=== PATIENT | male | born 1985 | race Caucasian/White ===

== ENCOUNTER 2017-11-05 06:31 | Day surgery (SDC) | payer BC ==
[~2017-11-05 06:31] MED LIST: Lactated Ringers 1,000 ML IV SCH; Lidocaine 1%/Sod Bicarbonate in NS 8.4% 1 ML Syringe IDERM PRN; Sodium Chloride 0.9% 10 ML Syringe FLUSH PRN
[2017-11-05] MEDS ORDERED: Propofol 200 MG/20 ML SDV ONE (07:06)
[2017-11-05] MEDS ORDERED: fentaNYL 100 MCG/2 ML SDV ONE (07:06)
[2017-11-05] MEDS ORDERED: Lidocaine 1% 4 ML ONE (07:07)
--- NOTE | 2017-11-05 07:18 | PCM.PREANE ---
Preanesthetic Assessment - Procedure Proposed Procedure: Diagnostic EGD - Anesthesia/Transfusion/Family Hx Anesthesia History: Prior Anesthesia Without Reaction Family History of Anesthesia Reaction: No Transfusion History: No Prior Transfusion(s) - Review of Systems General: No Symptoms Pulmonary: No Symptoms (Asthma, ADAMA with no CPAP), Other Cardiovascular: Other (HTN) Gastrointestinal: Other (GERD) Neurological: No Symptoms Other: Reports: Thyroid Problems (hypothyroid) - Physical Assessment NPO Status Date: 11/04/17 NPO Status Time: 20:00 Pulse: 82 O2 Sat by Pulse Oximetry: 94 Respiratory Rate: 18 Blood Pressure: 107/87 Temperature: 36.1 C Height: 1.8 m Weight: 158 kg ASA Class: 2 Mental Status: Alert & Oriented x3 Airway Class: Mallampati = 2 Dentition: Reports: Normal Dentition Thyro-Mental Finger Breadths: 3 Mouth Opening Finger Breadths: 3 ROM/Head Extension: Full Lungs: Clear to Auscultation, Normal Respiratory Effort Cardiovascular: Regular Rate, Regular Rhythm - Allergies Allergies/Adverse Reactions: Allergies Allergy/AdvReac Type Severity Reaction Status Date / Time No Known Allergies Allergy Verified 12/30/15 02:51 - Blood Blood Available: No Product(s) Available: None - Anesthesia Plan Pre-Op Medication Ordered: None - Acknowledgements Anesthesia Type Planned: MAC Pt an Appropriate Candidate for the Planned Anesthesia: Yes Alternatives and Risks of Anesthesia Discussed w Pt/Guardian: Yes Pt/Guardian Understands and Agrees with Anesthesia Plan: Yes PreAnesthesia Questionnaire HEENT History: Reports: Allergic Rhinitis Cardiovascular History: Reports: Hypertension Respiratory History: Reports: Asthma Gastrointestinal History: Reports: GERD, Hiatal Hernia Genitourinary History: Reports: Renal Calculus Other Genitourinary History: kidney disease - Past Surgical History HEENT Surgical History: Reports: Myringotomy w Tube(s), Tonsillectomy - SUBSTANCE USE Smoking Status *Q: Never Smoker Second Hand Smoke Exposure: No Recreational Drug Use History: No - HOME MEDS Home Medications: Home Meds Albuterol [Proair HFA] 2 puff INH Q4HR PRN 07/13/15 [History] Multivitamin [Daily Multiple Vitamin] 1 tab PO DAILY 07/13/15 [History] Omeprazole 40 mg PO BIDAC #60 cap.sr 07/15/15 [Rx] Ranitidine HCl [Ranitidine] 150 mg PO BID #60 tablet 07/15/15 [Rx] Lisinopril 10 mg PO DAILY 12/30/15 [History] - CURRENT (IN HOUSE) MEDS Current Meds: Current Medications Lactated Ringer's (Ringers, Lactated) 1,000 mls @ 125 mls/hr IV ASDIRECTED GUILLAUME Lidocaine/Sodium Bicarbonate (Buffered Lidocaine 1% In Ns 8.4%) 0.25 ml IDERM ONETIME PRN PRN Reason: Prior to IV Start Sodium Chloride (Saline Flush) 10 ml FLUSH ASDIRECTED PRN PRN Reason: Keep Vein Open Discontinued Medications Fentanyl (Sublimaze) Confirm Administered Dose 100 mcg .ROUTE .STK-MED ONE Stop: 11/05/17 07:07 Lactated Ringer's (Ringers, Lactated) 1,000 mls @ 125 mls/hr IV ASDIRECTED GUILLAUME Stop: 10/15/17 23:00 Lidocaine HCl (Xylocaine-Mpf 1%) Confirm Administered Dose 4 mls @ as directed .ROUTE .STK-MED ONE Stop: 11/05/17 07:08 Lidocaine/Sodium Bicarbonate (Buffered Lidocaine 1% In Ns 8.4%) 0.25 ml IDERM ONETIME PRN PRN Reason: Prior to IV Start Stop: 10/15/17 18:00 Propofol (Diprivan 20 Ml) Confirm Administered Dose 200 mg .ROUTE .STK-MED ONE Stop: 11/05/17 07:07 Sodium Chloride (Saline Flush) 10 ml FLUSH ASDIRECTED PRN PRN Reason: Keep Vein Open Stop: 10/15/17 18:00
--- NOTE | 2017-11-05 07:53 | PCM.HP ---
H&P History of Present Illness - General Date of Service: 11/05/17 History Limitations: Reports: No Limitations - History of Present Illness Initial Comments - Free Text/Narative: 32 year old male here today for EGD due to history of ulcerative esophagitis, hiatal hernia and GERD. He is on omeprazole and ranitidine and is doing well. No melena, dysphagia or weight loss. He is here for recheck on GERD and ulceration. - Related Data Allergies/Adverse Reactions: Allergies Allergy/AdvReac Type Severity Reaction Status Date / Time No Known Allergies Allergy Verified 11/05/17 07:55 Home Medications: Home Meds Albuterol [Proair HFA] 2 puff INH Q4HR PRN 07/13/15 [History] Multivitamin [Daily Multiple Vitamin] 1 tab PO DAILY 07/13/15 [History] Omeprazole 40 mg PO BIDAC #60 cap.sr 07/15/15 [Rx] Ranitidine HCl [Ranitidine] 150 mg PO BID #60 tablet 07/15/15 [Rx] Lisinopril 10 mg PO DAILY 12/30/15 [History] Levothyroxine 1 tab PO DAILY 11/05/17 [History] amLODIPine Besylate [Norvasc] 1 tab PO DAILY 11/05/17 [History] Past Medical History HEENT History: Reports: Allergic Rhinitis Cardiovascular History: Reports: Hypertension Respiratory History: Reports: Asthma Gastrointestinal History: Reports: GERD, Hiatal Hernia Genitourinary History: Reports: Renal Calculus Other Genitourinary History: kidney disease - Past Surgical History HEENT Surgical History: Reports: Myringotomy w Tube(s), Tonsillectomy Social & Family History - Family History Family Medical History: Noncontributory - Tobacco Use Smoking Status *Q: Never Smoker Second Hand Smoke Exposure: No - Recreational Drug Use Recreational Drug Use: No Drug Use in Last 12 Months: No - Living Situation & Occupation Occupation: Employed H&P Review of Systems - Review of Systems: Review Of Systems: See Below HEENT: Reports: No Symptoms Pulmonary: Reports: No Symptoms Cardiovascular: Reports: No Symptoms Gastrointestinal: Denies: Black Stool, Diarrhea Skin: Reports: No Symptoms Exam - Exam Exam: See Below - Vital Signs Vital Signs: Last Vital Signs Temp 36.1 C 11/05/17 07:21 Pulse 82 11/05/17 07:21 Resp 18 11/05/17 07:21 BP 107/87 11/05/17 07:21 Pulse Ox 94 L 11/05/17 07:21 Weight: 158 kg - Exam General: Alert, Oriented Lungs: Clear to Auscultation, Normal Respiratory Effort Cardiovascular: Regular Rate, Regular Rhythm GI/Abdominal Exam: Normal Bowel Sounds, Soft, Non-Tender - Problem List (1) Esophagitis SNOMED Code(s): 64991073 ICD Code: K20.9 - ESOPHAGITIS, UNSPECIFIED Status: Acute Current Visit: No (2) Gastritis SNOMED Code(s): 3318872 ICD Code: K29.70 - GASTRITIS, UNSPECIFIED, WITHOUT BLEEDING Status: Acute Current Visit: No (3) Hiatal hernia SNOMED Code(s): 26794053 ICD Code: K44.9 - DIAPHRAGMATIC HERNIA WITHOUT OBSTRUCTION OR GANGRENE Status: Acute Current Visit: No (4) GERD (gastroesophageal reflux disease) SNOMED Code(s): 566016658 ICD Code: K21.9 - GASTRO-ESOPHAGEAL REFLUX DISEASE WITHOUT ESOPHAGITIS Status: Acute Current Visit: Yes Problem List Initiated/Reviewed/Updated: Yes Orders Last 24hrs: Active Orders 24 hr Category Date Time Status Verify Patient Consent Obtain [RC] ASDIRECTED Care 11/05/17 00:01 Active Lactated Ringers [Ringers, Lactated] 1,000 ml Med 11/05/17 00:01 Active IV ASDIRECTED Lidocaine 1%/Sod Bicarbonate [Buffered Lidocaine 1% in Med 11/05/17 00:01 Active NS 8.4%] 0.25 ml IDERM ONETIME PRN Sodium Chloride 0.9% [Saline Flush] Med 11/05/17 00:01 Active 10 ml FLUSH ASDIRECTED PRN Medication Administration Instruction [OM.PC] Routine Oth 11/05/17 00:01 Ordered Peripheral IV Insertion Adult [OM.PC] Routine Oth 11/05/17 00:01 Ordered Peripheral IV Insertion Adult [OM.PC] Routine Oth 11/05/17 00:01 Ordered Medication Orders Lactated Ringer's (Ringers, Lactated) 1,000 mls @ 125 mls/hr IV ASDIRECTED GUILLAUME Lidocaine/Sodium Bicarbonate (Buffered Lidocaine 1% In Ns 8.4%) 0.25 ml IDERM ONETIME PRN PRN Reason: Prior to IV Start Sodium Chloride (Saline Flush) 10 ml FLUSH ASDIRECTED PRN PRN Reason: Keep Vein Open Assessment/Plan Comment:: 32 year old male here today for EGD. Benefits/risks discussed, proceed with procedure.
[2017-11-05 08:16] VITALS: BP 130/85
--- NOTE | 2017-11-05 08:16 | PCM48HPAN ---
Post Anesthesia Note - EVALUATION WITHIN 48HRS OF ANESTHETIC Vital Signs in Normal Range: Yes Patient Participated in Evaluation: Yes Respiratory Function Stable: Yes Airway Patent: Yes Cardiovascular Function Stable: Yes Hydration Status Stable: Yes Pain Control Satisfactory: Yes Nausea and Vomiting Control Satisfactory: Yes Mental Status Recovered: Yes Pulse Rate: 83 SaO2: 93 Resp Rate: 14 Temperature: 36.8 C Blood Pressure: 130/85
--- NOTE | 2017-11-05 08:16 | PCM.OPNOTE ---
- General Post-Op/Procedure Note Date of Surgery/Procedure: 11/05/17 Operative Procedure(s): Esophagogastroduodenoscopy with cold forceps biopsy Findings: Ulcerative esophagitis, Hiatal hernia, Duodenitis Pre Op Diagnosis: Hiatal hernia, Ulcerative Esophagitis, GERD Post-Op Diagnosis: Hiatal hernia, Duodenitis, Ulcerative esophagitis Anesthesia Technique: [facility] [place] Primary Surgeon: Damir Cowan EBL in mLs: 5 Complications: None Condition: Good Free Text/Narrative:: After patient gave verbal and written consent he was placed on blood pressure and pulse ox monitoring. He was given iv sedation which he tolerated well. The olympus gastroscope was inserted in the oropharynx and passed down into the second portion of the duodenum. The views were excellent. Mild to moderate duodenitis in the first portion of the duodenum was noted. Cold forceps biopsy x 4 were taken of the 1st portion of the duodenum. There was good hemostasis. A medium sized hiatal hernia was noted on retroflexion. The scope was straightened and brought to the GE junction. Moderate ulcerative esophagitis was noted and cold forceps biopsy x 4 was taken of the GE junction. There was good hemostasis. The scope was then removed. The patient tolerated the procedure well. The scope was then removed. The patient left the operating room in satisfactory condition. There were no complications.
== END 2017-11-05 08:55 | disposition home or self-care (01) ==
LOC: JD.SDS 06:31
PROVIDERS: ATTEND Family Medicine
DX: K22.10 Ulcer of esophagus without bleeding (principal); K44.9 Diaphragmatic hernia without obstruction or gangrene; K29.80 Duodenitis without bleeding; I10 Essential (primary) hypertension; J45.909 Unspecified asthma, uncomplicated; K21.9 Gastro-esophageal reflux disease without esophagitis; K29.70 Gastritis, unspecified, without bleeding; Z79.899 Other long term (current) drug therapy
CPT/HCPCS: 43239; J2001; J3010; J7120; 00731; J2704

== ENCOUNTER 2021-03-10 20:35 | Emergency (ER) | payer BC ==
[2021-03-10 21:30] VITALS: BP 144/99; PULSE 91
--- NOTE | 2021-03-10 22:18 | EDM.PDOC ---
ED HPI GENERAL MEDICAL PROBLEM - General Chief Complaint: Laceration Stated Complaint: CUT CHUNK OUT OF THUMB Time Seen by Provider: 03/10/21 21:35 Source of Information: Reports: Patient History Limitations: Reports: No Limitations - History of Present Illness INITIAL COMMENTS - FREE TEXT/NARRATIVE: 55-year-old male presents to the ED after slicing a side off of his left thumb with a mandolin grater used for slicing food. He did this at home. Examination reveals that he is sliced a large piece of skin from the ulnar aspect of his left thumb along the nail fold to the pulp space. The bone is not been exposed. His tetanus toxoid is up-to-date 2 to 3 years ago. He simply could not get the bleeding to stop and the reason for coming into the ED. Onset: Today, Sudden Onset Date: 03/10/21 Onset Time: 20:45 Duration: Minutes:, Other (Persistent bleeding from the thumb avulsion injury) Location: Reports: Upper Extremity, Left (Left ulnar aspect of his thumb) Quality: Reports: Ache, Throbbing, Other (Persistent bleeding) Severity: Moderate Improves with: Reports: None Worsens with: Reports: Other (Eating worsens without direct pressure) Context: Reports: Trauma (On a mandolin which is a sharp edged slicing tool used in the kitchen). Denies: Activity, Exercise, Sick Contact Associated Symptoms: Reports: No Other Symptoms Treatments INSPECTOR WATER POLLUTION CONTROL: Reports: Dressing(s) Left Finger-Thumb Pain Score (Numeric/FACES): 6 - Related Data Allergies Allergy/AdvReac Type Severity Reaction Status Date / Time No Known Allergies Allergy Verified 11/05/17 07:55 Home Meds: Home Meds Albuterol [Proair HFA] 2 puff INH Q4HR PRN 07/13/15 [History] Multivitamin [Daily Multiple Vitamin] 1 tab PO DAILY 07/13/15 [History] Ranitidine HCl [Ranitidine] 150 mg PO BID #60 tablet 07/15/15 [Rx] Lisinopril 10 mg PO DAILY 12/30/15 [History] Levothyroxine 1 tab PO DAILY 11/05/17 [History] Pantoprazole Sodium 40 mg PO DAILY #90 tablet. 11/05/17 [Rx] amLODIPine Besylate [Norvasc] 1 tab PO DAILY 11/05/17 [History] Past Medical History HEENT History: Reports: Allergic Rhinitis Cardiovascular History: Reports: Hypertension Respiratory History: Reports: Asthma Gastrointestinal History: Reports: GERD, Hiatal Hernia Genitourinary History: Reports: Renal Calculus Other Genitourinary History: kidney disease - Past Surgical History HEENT Surgical History: Reports: Myringotomy w Tube(s), Tonsillectomy Social & Family History - Family History Family Medical History: No Pertinent Family History - Living Situation & Occupation Occupation: Employed ED ROS GENERAL - Review of Systems Review Of Systems: See Below Constitutional: Denies: Fever, Chills, Malaise, Weakness, Decreased Appetite, Weight Loss HEENT: Reports: No Symptoms Respiratory: Reports: Other (History of asthma.) Cardiovascular: Reports: Blood Pressure Problem Endocrine: Reports: No Symptoms GI/Abdominal: Reports: Other (History of GERD and dyspepsia.) : Reports: Other (History of kidney stones.) Musculoskeletal: Reports: No Symptoms Skin: Reports: No Symptoms Neurological: Reports: No Symptoms Psychiatric: Reports: No Symptoms ED EXAM, SKIN/RASH Exam: See Below Exam Limited By: No Limitations General Appearance: Alert, WD/WN, Anxious, Mild Distress, Other (Temperature is 36.4 degrees. Heart rate was 91 and sinus respiratory to 16 with O2 sats of 94% room air. BP 144/99) Extremities: Other (Lamination of his left thumb reveals that he is avulsed a strip of skin approximately two-point site 5 cm in length adjacent to the ulnar aspect of his left thumbnail adjacent to the thumbnail and pulp space. There is nothing really to suture. The wound will be cauterized with silver nitrate in an) Neurological: Alert, Oriented, CN II-XII Intact, Normal Cognition Psychiatric: Normal Mood, Anxious Skin: Warm, Dry, Normal Color, Other (Also note of strip of skin ulnar thumb measuring 2.5 cm in length and 8 mm at its widest on the pulp space) Course - Vital Signs Last Recorded V/S: Last Vital Signs Temp 36.4 C 03/10/21 21:24 Pulse 91 03/10/21 21:24 Resp 16 03/10/21 21:24 BP 144/99 H 03/10/21 21:24 Pulse Ox 94 L 03/10/21 21:24 - Radiology Interpretation Free Text/Narrative:: 35-year-old male presents to the ED [place] to his ulnar aspect of his distal thumb. He came to the ED as he is unable to stop the bleeding. He had vigorous arterial bleeding coming from multiple sources on along the ulnar aspect of his thumb. Decision made to treat these with silver nitrate application to stem the bleeding which did work fairly well but did give him a good deal of pain. The wound will then be dressed with a finger cot dressing which will be very tight and he is to leave it on for the next 48 hours. After this he will take the dressing off and cleanse it daily with soap and water and apply topical antibiotic such as Polysporin or bacitracin and cover with bandages to keep clean. He was advised that this wound will take the better part of 5 to 6 weeks to heal incompletely. He sliced it with a mandolin slicer used in the evening. Departure - Departure Time of Disposition: 22:15 Disposition: Home, Self-Care 01 Condition: Fair Clinical Impression: Avulsion of skin of left thumb without complication Qualifiers: Encounter type: initial encounter Qualified Code(s): S61.002A - Unspecified open wound of left thumb without damage to nail, initial encounter - Discharge Information *PRESCRIPTION DRUG MONITORING PROGRAM REVIEWED*: Not Applicable *COPY OF PRESCRIPTION DRUG MONITORING REPORT IN PATIENT KIKO: Not Applicable Instructions: Deep Skin Avulsion Referrals: Chrissy Munoz PA-C [Primary Care Provider] - Forms: ED Department Discharge Additional Instructions: Evaluation in the emergency room tonight in regards to a linear avulsion of skin from the ulnar aspect of your distal left thumb. There was no tissue to suture. The lateral side of the fingernail was also mildly involved. Bleeding was treated with topical silver nitrate to bring the bleeding under control. Finger cot dressing was placed on the thumb to help the bleeding stop. It should be left in place for the next 48 hours. After this you can remove it and daily cleanse the area with soap and water gently. Then apply topical antibiotic such as bacitracin or Polysporin to the wound once daily and cover with bandages to keep clean. This wound is going to take the better part of 5 weeks to heal completely. Of course return to medical care if any signs of infection develop such as obvious redness, swelling or pus. Sepsis Event Note (ED) - Evaluation Sepsis Screening Result: No Definite Risk - Focused Exam Vital Signs: Vital Signs Temp Pulse Resp BP Pulse Ox 03/10/21 21:24 36.4 C 91 16 144/99 H 94 L
== END 2021-03-10 22:25 | disposition home or self-care (01) ==
LOC: JD.ED 20:35
DX: S61.002A Unspecified open wound of left thumb without damage to nail, initial encounter (principal); I10 Essential (primary) hypertension; J45.909 Unspecified asthma, uncomplicated; K21.9 Gastro-esophageal reflux disease without esophagitis; Z79.899 Other long term (current) drug therapy; W26.8XXA Contact with other sharp object(s), not elsewhere classified, initial encounter; Y92.009 Unspecified place in unspecified non-institutional (private) residence as the place of occurrence of the external cause
CPT/HCPCS: 12001; 99282; 99282-25